=== PATIENT | male | born 1990 | race Caucasian/White ===

== ENCOUNTER 2016-06-04 19:04 | Emergency (ER) | payer BC ==
[2016-06-04 19:13] VITALS: BP 109/80
[2016-06-04 19:21] LABS: Urine Bilirubin Negative (NEGATIVE); Urine Ketone 5 mg/dL (NEGATIVE); Urine Nitrite Negative (NEGATIVE); Urine Protein Negative (NEGATIVE); Urine Specific Gravity >=1.030 SP.GR. (1.005-1.030); Urine Urobilinogen Normal (NORMAL); Urine pH 5.5 pH (5.0-7.0)
[2016-06-04 19:28] LABS: Urine Appearance Clear; Urine Blood 10 /ul (NEGATIVE); Urine Color Yellow
[2016-06-04 19:29] LABS: Urine Bacteria 1+; Urine Mucus Many - 3+; Urine RBC 0-5 /hpf (0-5); Urine WBC 0-5 /hpf (0-5)
[2016-06-04 21:24] LABS: Hematocrit 52.5 % (42.0-52.0); Hemoglobin 17.9 gm/dL (13.5-18.0); Mean Cell Volume 89.1 fl (78-100); Mean Corpuscular Hemoglobin 30.4 pg (27-31); Mean Corpuscular Hgb Conc 34.1 g/dl (32-36); Mean Platelet Volume 8.6 fl (6.0-9.5); Neutrophil # 8.6 K/mm3 (1.3-6.0); Neutrophil % 58.2 % (42-75.0); Platelet Count 381 K/mm3 (150-450); Red Blood Count 5.89 M/mm3 (4.7-6.0); Red Cell Distribution Width 13.1 % (11.5-14.0); White Blood Count 14.9 K/mm3 (4.0-10.5)
--- OUTSIDE RECORDS SUMMARY | 2016-06-04 21:30 | XMS REPORT | Continuity of Care Document ---
:1990 Author Organization [facility] ([facility]) Address [address] [place] [address] Phone [phone] Care Team Providers Name Role Phone Unavailable Primary Care Provider Unavailable Source Comments This disclosure is being made pursuant to the Care Everywhere program, applicable federal and state laws, and may not contain all informaitonavailable regarding this patient.[facility] ([facility]) Active Allergies and Adverse Reactions Not on File Current Medications Not on file Active Problems Not on file Social History Tobacco Use Types Packs/Day Years Used Date Never Assessed Plan of Care Health Maintenance Due Date Last Done Comments Hepatitis B Vaccine (1 of 3 - Primary Series) 1991 HPV Vaccine (1 of 3 - Male 3 Dose Series) 2002 Tdap Vaccine 2002 Lipid Disorder Screening 2009 MMR Vaccine 2009 Td Vaccine 2009 Varicella Vaccine (1 of 2 - Adult - No Evidence of 2009 Immunity) Influenza Vaccine: Seasonal (#1) 10/01/2015 Results from Last 3 Months Not on file
[2016-06-04] MEDS ORDERED: DIATRIZOATE MEGLU/DIATRIZO SOD 30 ML BTL ONE (21:34)
[2016-06-04] MEDS ORDERED: DIATRIZOATE MEGLU/DIATRIZO SOD 30 ML BTL PO ONE (21:39)
[2016-06-04] MEDS ORDERED: SULFAMETHOXAZOLE/TRIMETHOPRIM 1 TAB TABLET PO ONE (21:57)
[2016-06-04] MEDS ORDERED: SULFAMETHOXAZOLE/TRIMETHOPRIM 1 TAB TABLET ONE (21:57)
--- NOTE | 2016-06-04 21:57 | ERNOTE ---
ER Male HPI Stated Complaint: PAIN IN LOWER BACK Time Seen by Provider: 06/04/16 20:57 Immunizations: IMMUNIZATION HX Immunizations Up to Date Yes History of Influenza Vaccine Yes Allergies/Adverse Reactions: Allergies No Known Allergies Allergy (Verified 06/04/16 19:13) Home Medications: HOME MEDICATIONS Ibuprofen [Motrin] 800 mg PO TID PRN #30 tab 06/04/16 [Last Taken Unknown] Sulfamethoxazole/Trimethoprim [Bactrim Ds] 1 tab PO BID #28 tab 06/04/16 [Last Taken Unknown] - Patient's Past Medical History Patient History - Medical: No pertinent hx Patient History - Cardiac/Respiratory: No pertinent hx Patient History - Cancer: No Hx of Cancer Patient History - Surgical Procedures: Appendectomy - Social History Living Situations: home Smoking Status: Current every day smoker Patient requests Smoking Cessation Consult: No Initiate information on Smoking Cessation: No Alcohol Use: occasionally Drug Use: none - Immunizations Immunizations Up to Date: Yes History of Influenza Vaccine: Yes Physical Exam - Physical Exam General Appearance: Present: wd/wn, alert, no apparent distress Neck: Present: normal inspection, nontender Respiratory: Present: no respiratory distress, normal breath sounds, no accessory muscle use, chest nontender Cardiovascular/Chest: Present: regular rate, rhythm, no murmur, normal peripheral pulses Gastrointestinal/Abdominal: Present: normal bowel sounds, nontender, nondistended, soft Back Exam: Present: other - pt does have some CVA tenderness on both sides and he is also slightly tender in the areas below his CVA regions ED Progress - Vital Signs Vital Signs: Vital Signs 06/04/16 19:09 Temperature 37.7 C H Pulse Rate 108 H Respiratory 18 Rate Blood Pressure 109/80 O2 Sat by Pulse 98 Oximetry - Progress/Reassessment Chief Complaint: Genitourinary Problem Plan - Plan Plan: patient's exam is consistent with Pyelonephritis, His WBC is elevated at 14 and he will be treated appropriately Departure Clinical Impression: Pyelonephritis - Departure Disposition: Home self-care Condition: Good Instructions: Flank Pain, [id number] Prescriptions: Ibuprofen [Motrin] 800 mg PO TID PRN #30 tab PRN Reason: Pain Sulfamethoxazole/Trimethoprim [Bactrim Ds] 1 tab PO BID #28 tab
[2016-06-04] MEDS ORDERED: IBUPROFEN 400 MG TABLET ONE (21:58)
[2016-06-04] MEDS ORDERED: IBUPROFEN 400 MG TABLET PO ONE (21:58)
== END 2016-06-04 22:12 | disposition home or self-care (01) ==
LOC: ER 19:04
DX: N12 Tubulo-interstitial nephritis, not specified as acute or chronic (principal); F17.210 Nicotine dependence, cigarettes, uncomplicated

== ENCOUNTER 2016-11-13 00:01 | Emergency (ER) | payer BC ==
[2016-11-13] MEDS ORDERED: TETRACAINE HCL 150 DROP BTL ONE (03:02)
[2016-11-13 03:23] VITALS: BP 112/70
--- NOTE | 2016-11-13 04:04 | ERNOTE ---
ENT HPI Presenting Symptoms: eye pain, other Time Seen by Provider: 11/13/16 03:00 Source: patient Exam Limitations: no limitations - Immun/Allergies/Home Medications Immunizations: IMMUNIZATION HX Immunizations Up to Date Yes History of Influenza Vaccine Yes Allergies/Adverse Reactions: Allergies Allergy/AdvReac Type Severity Reaction Status Date / Time No Known Allergies Allergy Verified 11/13/16 00:13 Home Medications: HOME MEDICATIONS NK [No Home Medication] 11/13/16 [Last Taken Unknown] - History of Present Illness Narrative: Pt was accidently poked in the eye with a fingernail. Pt thought the pain was minimal until he went out into the light and then it became severe. Severity: Present: moderate, severe ENT Location: Present: eye (L) Prearrival Treatment: Present: no prearrival treatment Modifying Factors - Worsens: Reports: other - light Review of Systems - Review of Systems Constitutional: Absent: recent illness EYE: Present: see HPI Skin: Absent: change in color Neurological: Absent: headache, dizziness/light-headedness - Patient's Past Medical History Patient History - Medical: No pertinent hx Patient History - Cardiac/Respiratory: No pertinent hx Patient History - Cancer: No Hx of Cancer Patient History - Surgical Procedures: Appendectomy - Social History Living Situations: home Patient requests Smoking Cessation Consult: No Initiate information on Smoking Cessation: No Alcohol Use: occasionally Drug Use: none - Immunizations Immunizations Up to Date: Yes History of Influenza Vaccine: Yes Physical Exam - Physical Exam General Appearance: Present: wd/wn, alert, mild distress Head Exam: Present: normal inspection, no evidence of injury Eye Exam: PERRL: bilateral, EOMI: bilateral, Other: left - eye has 4-5 mm laceration vertical, lateral to the pupil Ears, Nose, Throat: Present: normal ENT inspection Neck: Present: normal inspection, nontender Respiratory: Present: no respiratory distress, no accessory muscle use Back Exam: Present: normal inspection, normal range of motion, no CVA tenderness ED Progress - Vital Signs Vital Signs: Vital Signs 11/13/16 11/13/16 00:10 03:22 Temperature 36.9 C Pulse Rate 89 80 Respiratory 18 16 Rate Blood Pressure 116/71 112/70 O2 Sat by Pulse 99 99 Oximetry - Progress/Reassessment Chief Complaint: Eye Injury/Trauma Progress Note-Subjective: 11/13/16 03:56 Spoke with Ophthalmology 03:40 Dr. Grace Arango and she agrees with ER to ER transfer and she will see him in the ED. 03:[address] Figueroa in the ED and he agrees to accept transfer. Procedures Eye Location: left eye Tetracaine Drops Administered: Yes Eye - Cornea: Left: examined w/fluorescein, fluorescein dye uptake - laceration left lateral cornea triangularly deep laceration approx 4 mm at surface down to a point Complications: Pt deneen procedure well Departure Clinical Impression: Corneal laceration of left eye Qualifiers: Encounter type: initial encounter Qualified Code(s): S05.32XA - Ocular laceration without prolapse or loss of intraocular tissue, left eye, initial encounter - Departure Disposition: [facility] Condition: Fair Additional Instructions: Go directly to the [facility] emergency room. Leave the sheild on until they take it off. Do not eat or drink anything until you are seen and cleared by them.
== END 2016-11-13 04:11 | disposition short-term general hospital (02) ==
LOC: ER 00:01
DX: S05.32XA Ocular laceration without prolapse or loss of intraocular tissue, left eye, initial encounter (principal); W22.8XXA Striking against or struck by other objects, initial encounter